=== PATIENT | female | born 1950 | race Hispanic/Latino ===

== ENCOUNTER 2019-03-23 06:00 | Inpatient (IN) | payer MEDICARE, OTHER | END 2019-03-27 13:35 | disposition home or self-care (01) | LOC: EDH 06:00 → EDHIP 13:42 → 3CH 15:11 | PROC: BF11YZZ Fluoroscopy of Biliary and Pancreatic Ducts using Other Contrast (ICD-10-PCS; principal; ~2019-03-23) | DX: K81.0 Acute cholecystitis (principal); K76.0 Fatty (change of) liver, not elsewhere classified; K57.30 Diverticulosis of large intestine without perforation or abscess without bleeding; E66.9 Obesity, unspecified; K83.8 Other specified diseases of biliary tract ==

== ENCOUNTER → 2019-03-30 | Outpatient (CLI) | payer MEDICARE | END | disposition home or self-care (01) | LOC: RAH 08:33 | PROVIDERS: ATTEND Family Medicine | DX: M47.812 Spondylosis without myelopathy or radiculopathy, cervical region (principal) | CPT/HCPCS: 72141 ==